=== PATIENT | female | born 1995 | race Caucasian/White ===

== ENCOUNTER 2016-11-04 21:39 | Emergency (ER) | payer OTHER ==
[~2016-11-04 21:39] MED LIST: AMOX500T PO; HYDR-971 PO
[2016-11-04 21:43] VITALS: BP 128/85
[2016-11-04] MEDS ORDERED: PENI500T PO (22:53)
[2016-11-04] MEDS ORDERED: TRAM-29 PO (22:53)
--- NOTE | 2016-11-04 22:54 | PHYS DOC ---
Past Medical History Past Medical History: No Pertinent History Past Surgical History: Additional Past Surgical Histo: D & C Additional Information: Nonsmoker Alcohol Use: None Drug Use: None Adult General Chief Complaint Chief Complaint: DENTAL PROBLEM HPI HPI Patient is a 21 year old female who presents with right mandibular dental pain starting today. The affected tooth was previously broken. She denies any new injury. She denies any fevers. She does not have a PCP. She does not have a dentist. Review of Systems Review of Systems Constitutional: Denies fever or chills. [] Eyes: Denies change in visual acuity, redness, or eye pain. [] HENT: Denies ear pain, nasal congestion or sore throat. Reports dental pain and swelling. Integument: Denies rash or skin lesions. [] Neurologic: Denies headache, focal weakness or sensory changes. [] Allergies Allergies Allergies Coded Allergies Type Severity Reaction Last Updated Verified No Known Drug Allergies 01/23/16 No Physical Exam Physical Exam Constitutional: Well developed, well nourished, no acute distress, non-toxic appearance. [] HENT: Normocephalic, atraumatic, bilateral external ears normal, oropharynx moist, no oral exudates, nose normal. Bilateral TMs without erythema or bulging. There is no posterior pharyngeal erythema or tonsillar edema. Tooth # 30 is broken with mild surrounding gingival edema without dental abscess. Eyes: PERRLA, EOMI, conjunctiva normal, no discharge. [] Neck: Normal range of motion, no tenderness, supple, no stridor. [] Skin: Warm, dry, no erythema, no rash. [] Neurologic: Alert and oriented X 3, normal motor function, normal sensory function, no focal deficits noted. [] Psychologic: Affect normal, judgement normal, mood normal. [] Current Patient Data Vital Signs Vital Signs Date Time Temp Pulse Resp B/P Pulse Ox O2 Delivery O2 Flow Rate FiO2 11/04/16 21:43 97.9 79 18 98 Room Air 97.9 Lab Values Laboratory Tests Test 11/04/16 21:35 POC Urine HCG, Qualitative Hcg negative (Negative) EKG EKG [] Radiology/Procedures Radiology/Procedures [] Course & Med Decision Making Course & Med Decision Making Pertinent Labs and Imaging studies reviewed. (See chart for details) [] Dragon Disclaimer Dragon Disclaimer This electronic medical record was generated, in whole or in part, using a voice recognition dictation system. Departure Departure Impression: Primary Impression: Dentalgia Disposition: 01 HOME, SELF-CARE Condition: STABLE Referrals: NO PCP (PCP) Patient Instructions: Dental Pain, [id number] Additional Instructions: Please complete all the prescribed antibiotics, even if your tooth is feeling better. Please take the prescribed pain medication as directed. Do not drive or heavy machinery while taking pain medication. Please follow-up with the dentist of your choice as soon as possible. Return to the emergency department if you have any new or concerning symptoms. Scripts Penicillin V Potassium 500 Mg Tablet1 Tab PO TID #30 TAB Prov:CALIXTO DE LA FUENTE 11/04/16 Tramadol Hcl (Ultram)50 Mg Jerugu18 Mg PO Q6H PRN PAIN #20 TAB Prov:CALIXTO DE LA FUENTE 11/04/16 CALIXTO DE LA FUENTE Nov 04, 2016 22:53
== END 2016-11-04 22:55 | disposition home or self-care (01) ==
LOC: ER 21:39
DX: K08.89 Other specified disorders of teeth and supporting structures (principal)
CPT/HCPCS: 81025; 99283

== ENCOUNTER 2017-07-12 15:00 | Emergency (ER) | payer SELFPAY ==
[~2017-07-12] VITALS: Ht 165.1 cm; Wt 59.0 kg
[~2017-07-12 15:00] MED LIST changes: +PENI500T PO; +TRAM-48 PO
--- NOTE | 2017-07-12 15:49 | PHYS DOC ---
Past Medical History Past Medical History: Other Additional Past Medical Histor: ECTOPIC Past Surgical History: Additional Past Surgical Histo: D & C Alcohol Use: None Drug Use: None Adult General Chief Complaint Chief Complaint: ABDOMINAL PAIN HPI HPI Patient is a 22 year old female presents the ED complaining of vaginal bleeding since last night. Patient states she had one episode of vaginal bleeding and lower abdominal cramping. Rates the pain as 8/10. Patient states she thinks she might have been . Patient states similar symptoms with previous miscarriages in the past. Patient has had one stillbirth and 3 miscarriages. One living child. . Denies chest pain, shortness of breath , nausea/vomiting, blood in stool, inability to eat, fever, headache, vision changes. Review of Systems Review of Systems Constitutional: Denies fever or chills [] Eyes: Denies change in visual acuity, redness, or eye pain [] HENT: Denies nasal congestion or sore throat [] Respiratory: Denies cough or shortness of breath [] Cardiovascular: No additional information not addressed in HPI [] GI: Complains of abdominal pain. Denies nausea, vomiting, bloody stools or diarrhea [] : Denies dysuria or hematuria [] Musculoskeletal: Denies back pain or joint pain [] Integument: Denies rash or skin lesions [] Neurologic: Denies headache, focal weakness or sensory changes [] Endocrine: Denies polyuria or polydipsia [] All other systems were reviewed and found to be within normal limits, except as documented in this note. Current Medications Current Medications Current Medications Medications (Trade) Dose Ordered Sig/[facility] Start Time Stop Time Status Last Admin Dose Admin Ketorolac Tromethamine (Toradol) 30 mg 1X ONCE 07/12/17 16:45 07/12/17 16:46 DC 07/12/17 16:45 30 MG Ondansetron HCl (Zofran) 4 mg 1X ONCE 07/12/17 16:45 07/12/17 16:46 DC 07/12/17 16:45 4 MG Potassium Chloride (Klor-Con) 40 meq 1X ONCE 07/12/17 17:30 07/12/17 17:31 DC 07/12/17 17:30 40 MEQ Allergies Allergies Allergies Coded Allergies Type Severity Reaction Last Updated Verified No Known Drug Allergies 01/23/16 No Physical Exam Physical Exam Constitutional: Well developed, well nourished, no acute distress, non-toxic appearance. [] HENT: Normocephalic, atraumatic, bilateral external ears normal, oropharynx moist, no oral exudates, nose normal. [] Eyes: PERRLA, EOMI, conjunctiva normal, no discharge. [] Neck: Normal range of motion, no tenderness, supple, no stridor. [] Cardiovascular:Heart rate regular rhythm, no murmur [] Lungs & Thorax: Bilateral breath sounds clear to auscultation [] Abdomen: Bowel sounds normal, soft, MILD LLQ ABDOMINAL TENDERNESS, no masses, no pulsatile masses. [] Refused /pelvic exam. Skin: Warm, dry, no erythema, no rash. [] Back: No tenderness, no CVA tenderness. [] Extremities: No tenderness, no cyanosis, no clubbing, ROM intact, no edema. [] Neurologic: Alert and oriented X 3, normal motor function, normal sensory function, no focal deficits noted. [] Psychologic: Affect normal, judgement normal, mood normal. [] Current Patient Data Vital Signs Vital Signs Date Time Temp Pulse Resp B/P (MAP) Pulse Ox O2 Delivery O2 Flow Rate FiO2 07/12/17 16:42 72 20 122/81 (95) 98 Room Air 07/12/17 15:40 98.3 98.3 Lab Values Laboratory Tests Test 07/12/17 15:30 07/12/17 15:38 07/12/17 15:50 Urine Color Yellow Urine Clarity Clear Urine pH 6.0 Urine Specific [place] >=1.030 Urine Protein Negative mg/dL (NEG-TRACE) Urine Glucose (UA) Negative mg/dL (NEG) Urine Ketones (Stick) Negative mg/dL (NEG) Urine Blood Negative (NEG) Urine Nitrite Negative (NEG) Urine Bilirubin Small (NEG) Urine Urobilinogen Dipstick 1.0 mg/dL (0.2 mg/dL) Urine Leukocyte Esterase Negative (NEG) Urine RBC 0 /HPF (0-2) Urine WBC 1-4 /HPF (0-4) Urine Squamous Epithelial Cells Occ /LPF Urine Amorphous Sediment Present /HPF Urine Bacteria Few /HPF (0-FEW) Urine Mucus Mod /LPF POC Urine HCG, Qualitative Hcg negative (Negative) White Blood Count 4.6 x10^3/uL (4.0-11.0) Red Blood Count 4.29 x10^6/uL (3.50-5.40) Hemoglobin 13.0 g/dL (12.0-15.5) Hematocrit 39.3 % (36.0-47.0) Mean Corpuscular Volume 92 fL (79-100) Mean Corpuscular Hemoglobin 30 pg (25-35) Mean Corpuscular Hemoglobin Concent 33 g/dL (31-37) Red Cell Distribution Width 16.7 % (11.5-14.5) H Platelet Count 224 x10^3/uL (140-400) Neutrophils (%) (Auto) 42 % (31-73) Lymphocytes (%) (Auto) 47 % (24-48) Monocytes (%) (Auto) 8 % (0-9) Eosinophils (%) (Auto) 2 % (0-3) Basophils (%) (Auto) 1 % (0-3) Neutrophils # (Auto) 1.9 x10^3uL (1.8-7.7) Lymphocytes # (Auto) 2.2 x10^3/uL (1.0-4.8) Monocytes # (Auto) 0.4 x10^3/uL (0.0-1.1) Eosinophils # (Auto) 0.1 x10^3/uL (0.0-0.7) Basophils # (Auto) 0.1 x10^3/uL (0.0-0.2) Sodium Level 140 mmol/L (136-145) Potassium Level 3.1 mmol/L (3.5-5.1) L Chloride Level 106 mmol/L (98-107) Carbon Dioxide Level 25 mmol/L (21-32) Anion Gap 9 (6-14) Blood Urea Nitrogen 8 mg/dL (7-20) Creatinine 0.8 mg/dL (0.6-1.0) Estimated GFR (Cockcroft-Gault) 88.1 BUN/Creatinine Ratio 10 (6-20) Glucose Level 86 mg/dL (70-99) Calcium Level 8.8 mg/dL (8.5-10.1) Total Bilirubin 0.4 mg/dL (0.2-1.0) Aspartate Amino Transferase (AST) 16 U/L (15-37) Alanine Aminotransferase (ALT) 21 U/L (14-59) Alkaline Phosphatase 48 U/L (46-116) Total Protein 7.0 g/dL (6.4-8.2) Albumin 3.9 g/dL (3.4-5.0) Albumin/Globulin Ratio 1.3 (1.0-1.7) Serum Test, Qualitative Negative (NEG) Laboratory Tests 07/12/17 15:50 Laboratory Tests 07/12/17 15:50 EKG EKG [] Radiology/Procedures Radiology/Procedures PROCEDURE: PELVIS W/TV Pelvic ultrasound, 07/12/2017: History: Pelvic pain, vaginal bleeding Transabdominal and transvaginal scans were obtained. The uterus measures 7.6 x 3.8 x 5.2 cm. There is thickening of the central uterine echo complex which measures 14 mm in AP dimension. The uterus is otherwise unremarkable. The left ovary is of normal size with normal blood flow. The right ovary is enlarged. It contains a 4.1 x 3.3 x 4.0 cm mass. This mass is complex demonstrating irregular cystic components as well as echogenic components. There is suggestion of minimal internal color flow. The adnexal regions are otherwise unremarkable. No free fluid is seen in the pelvis. IMPRESSION: 1. Mild nonspecific thickening of the central uterine echo complex likely due to endometrial hyperplasia. An endometrial polyp or submucosal fibroid or less likely possibilities. 2. Complex right ovarian mass with diagnostic considerations including a hemorrhagic cyst, endometrioma or an ovarian neoplasm. Sonographic follow-up is suggested. [] Course & Med Decision Making Course & Med Decision Making Pertinent Labs and Imaging studies reviewed. (See chart for details) [] Discussed case with Dr. Rios, MANAGER [employer]. States patient can follow-up in office tomorrow. Will further evaluate her at that time. Discussed labs and imaging with patient. Patient's pain resolved. On reexamination, abdomen is soft nontender nondistended. No peritoneal signs. Discussed follow-up with MANAGER [employer] tomorrow. Provided contact information and education for follow-up. Discussed reasons to return to the ED. Patient understands and agrees with plan. Dragon Disclaimer Dragon Disclaimer This electronic medical record was generated, in whole or in part, using a voice recognition dictation system. Departure Departure Impression: Primary Impression: Ovarian mass, right Disposition: 01 HOME, SELF-CARE Condition: IMPROVED Referrals: NO PCP (PCP) DAVID MUNOZ MD Patient Instructions: Ovarian Cyst Scripts Tramadol Hcl (TRAMADOL HCL) 50 Mg Tablet 1 TAB PO PRN Q6HRS, #15 TAB Prov: MAGGI LIZARRAGA 07/12/17 MAGGI LIZARRAGA Jul 12, 2017 15:49
[2017-07-12 15:58] LABS: BILIRUBIN,URINE SMALL (NEG); GLUCOSE,URINE NEGATIVE (NEG); NITRITE,URINE NEGATIVE (NEG); PROTEIN,URINE NEGATIVE (NEG-TRACE)
[2017-07-12 16:01] LABS: BASO # 0.1 x10^3/uL (0.0-0.2); BASO % 1 % (0-3); EOS % 2 % (0-3); HEMATOCRIT 39.3 % (36.0-47.0); LYMPH # 2.2 x10^3/uL (1.0-4.8); LYMPH % 47 % (24-48); MEAN CORPUSCULAR HEMOGLOBIN 30 pg (25-35); MEAN CORPUSCULAR HGB CONC 33 g/dL (31-37); MEAN CORPUSCULAR VOLUME 92 fL (79-100); MONO % 8 % (0-9); NEUT % 42 % (31-73); PLATELET COUNT 224 x10^3/uL (140-400); RED BLOOD COUNT 4.29 x10^6/uL (3.50-5.40); RED CELL DISTRIBUTION WIDTH 16.7 % (11.5-14.5); WHITE BLOOD COUNT 4.6 x10^3/uL (4.0-11.0)
[2017-07-12 16:05] LABS: BACTERIA,URINE FEW /HPF (0-FEW); RBC,URINE 0 /HPF (0-2); SQUAMOUS EPITHELIAL CELL,UR OCC /LPF
[2017-07-12 16:10] LABS: NEG OBC SER NEG; POS OBC SER POS
[2017-07-12 16:38] LABS: ALBUMIN 3.9 g/dL (3.4-5.0); ALBUMIN/GLOBULIN RATIO 1.3 (1.0-1.7)
[2017-07-12 16:39] LABS: CALCIUM 8.8 mg/dL (8.5-10.1); CREATININE 0.8 mg/dL (0.6-1.0); GFR 88.1; POTASSIUM 3.1 mmol/L (3.5-5.1); TOTAL BILIRUBIN 0.4 mg/dL (0.2-1.0)
[2017-07-12 16:42] VITALS: BP 122/81
[2017-07-12] MEDS ORDERED: KETOROLAC 30 MG/ML INJ. IV ONE (16:45)
[2017-07-12] MEDS ORDERED: ONDANSETRON PF 4 MG/2 ML VIAL. IV ONE (16:45)
--- NOTE | 2017-07-12 16:46 | RAD ---
Pelvic ultrasound, 07/12/2017: History: Pelvic pain, vaginal bleeding Transabdominal and transvaginal scans were obtained. The uterus measures 7.6 x 3.8 x 5.2 cm. There is thickening of the central uterine echo complex which measures 14 mm in AP dimension. The uterus is otherwise unremarkable. The left ovary is of normal size with normal blood flow. The right ovary is enlarged. It contains a 4.1 x 3.3 x 4.0 cm mass. This mass is complex demonstrating irregular cystic components as well as echogenic components. There is suggestion of minimal internal color flow. The adnexal regions are otherwise unremarkable. No free fluid is seen in the pelvis. IMPRESSION: 1. Mild nonspecific thickening of the central uterine echo complex likely due to endometrial hyperplasia. An endometrial polyp or submucosal fibroid or less likely possibilities. 2. Complex right ovarian mass with diagnostic considerations including a hemorrhagic cyst, endometrioma or an ovarian neoplasm. Sonographic follow-up is suggested.
[2017-07-12] MEDS ORDERED: TRAM50TA PO (17:24)
[2017-07-12] MEDS ORDERED: POTASSIUM CHLORIDE 20 MEQ TABLET.ER. PO ONE (17:30)
== END 2017-07-12 17:40 | disposition home or self-care (01) ==
LOC: ER 15:00
DX: N83.8 Other noninflammatory disorders of ovary, fallopian tube and broad ligament (principal); R10.32 Left lower quadrant pain
CPT/HCPCS: 36415; 76830; 76856; 80053; 81001; 81025; 84703; 85025; 86900; 86901; 96374; 96375; 99285; J1885; J2405

== ENCOUNTER 2017-09-17 15:50 | Emergency (ER) | payer SELFPAY ==
[2017-09-17 17:13] LABS: BILIRUBIN,URINE NEGATIVE (NEG); CLARITY,URINE CLOUDY; COLOR,URINE YELLOW; GLUCOSE,URINE NEGATIVE (NEG); NITRITE,URINE POSITIVE (NEG); PROTEIN,URINE 30 mg/dL (NEG-TRACE)
[2017-09-17 17:13] LABS: URINE HCG POC HCG NEGATIVE (Negative)
[2017-09-17 17:24] LABS: BACTERIA,URINE FEW /HPF (0-FEW); SQUAMOUS EPITHELIAL CELL,UR OCC /LPF; WBC,URINE TNTC /HPF (0-4)
[2017-09-17] MEDS: ACETAMINOPHEN 325 MG TABLET. PO ×2 (18:43)
[2017-09-17] MEDS: IBUPROFEN 800 MG TABLET. PO ×2 (18:44)
[2017-09-17] MEDS: CIPROFLOXACIN HCL 250 MG TABLET. PO ×2 (18:45)
[2017-09-17] MEDS: HYDROcodone/APAP 5/325MG 1 TAB TABLET PO ×2 (18:46)
[2017-09-17] MEDS: cefTRIAXone IM 1 GM VIAL IM ×2 (18:48)
== END 2017-09-17 19:27 | disposition home or self-care (01) ==
LOC: ER 15:50
DX: N12 Tubulo-interstitial nephritis, not specified as acute or chronic (principal); Z87.440 Personal history of urinary (tract) infections
CPT/HCPCS: 81001; 81025; 87086; 87186; 96372; 99284; J0696

== ENCOUNTER 2019-06-02 14:18 | Emergency (ER) | payer SELFPAY ==
[~2019-06-02] VITALS: Ht 166.4 cm; Wt 60.3 kg
[~2019-06-02 14:18] MED LIST changes: +CIPR500T94 PO; +HYDR-3164 PO; -HYDR-971 PO; +ONDA4TAB10 PO; +TRAM50TA PO
--- NOTE | 2019-06-02 14:40 | PHYS DOC ---
Past Medical History Past Medical History: UTI, Other Additional Past Medical Histor: ECTOPIC Past Surgical History: Additional Past Surgical Histo: D & C Alcohol Use: None Drug Use: None Adult General Chief Complaint Chief Complaint: ANXIETY/PANIC ATTACK HPI HPI Patient is a 24 year old female who presents to the ER for headache and loss of eye vision in the left eye that started 45 minutes prior to arrival. She is also light-sensitive. The patient states when this happens she was helping her sister get into the house. The patient rates the pain behind her eyes 8 out of 10 in severity and sharp. Review of Systems Review of Systems Constitutional: Denies fever or chills [] Eyes: Reports change in visual acuity, and eye pain [] HENT: Denies nasal congestion or sore throat [] Respiratory: Denies cough or shortness of breath [] Cardiovascular: No additional information not addressed in HPI [] GI: Denies abdominal pain, nausea, vomiting, bloody stools or diarrhea [] : Denies dysuria or hematuria [] Musculoskeletal: Denies back pain or joint pain [] Integument: Denies rash or skin lesions [] Neurologic: Reports headache, Denies focal weakness or sensory changes [] Endocrine: Denies polyuria or polydipsia [] Complete systems were reviewed and found to be within normal limits, except as documented in this note. Current Medications Current Medications Current Medications Medications (Trade) Dose Ordered Sig/[facility] Start Time Stop Time Status Last Admin Dose Admin Diphenhydramine HCl (Benadryl) 50 mg 1X ONCE 06/02/19 15:30 06/02/19 15:31 DC 06/02/19 15:37 50 MG Ketorolac Tromethamine (Toradol 15mg Vial) 10 mg 1X STAT 06/02/19 15:19 06/02/19 15:22 DC 06/02/19 15:37 10 MG Lidocaine HCl 20 ml 1X ONCE 06/02/19 14:45 06/02/19 14:46 DC 06/02/19 15:14 20 ML Prochlorperazine Edisylate (Compazine) 10 mg 1X ONCE 06/02/19 15:30 06/02/19 15:31 DC 06/02/19 15:38 10 MG Sodium Chloride 1,000 ml @ 1,000 mls/hr 1X ONCE 06/02/19 14:45 06/02/19 15:44 DC 06/02/19 14:45 1,000 MLS/HR Allergies Allergies Allergies Coded Allergies Type Severity Reaction Last Updated Verified No Known Drug Allergies 01/23/16 No Physical Exam Physical Exam Constitutional: Well developed, well nourished, no acute distress, non-toxic appearance. [] HENT: Normocephalic, atraumatic, bilateral external ears normal, oropharynx moist, no oral exudates, nose normal. [] Eyes: PERRLA, EOMI, conjunctiva normal, no discharge. [] Neck: Normal range of motion, no tenderness, supple, no stridor. [] Cardiovascular:Heart rate regular rhythm, no murmur [] Lungs & Thorax: Bilateral breath sounds clear to auscultation [] Abdomen: Bowel sounds normal, soft, no tenderness, no masses, no pulsatile masses. [] Skin: Warm, dry, no erythema, no rash. [] Back: No tenderness, no CVA tenderness. [] Extremities: No tenderness, no cyanosis, no clubbing, ROM intact, no edema. [] Neurologic: Alert and oriented X 3, normal motor function, normal sensory function, no focal deficits noted. [] Psychologic: Affect normal, judgement normal, mood normal. [] Current Patient Data Vital Signs Vital Signs Date Time Temp Pulse Resp B/P (MAP) Pulse Ox O2 Delivery O2 Flow Rate FiO2 06/02/19 14:30 98.3 75 18 114/72 (86) 98 Room Air 98.3 Lab Values Laboratory Tests Test 06/02/19 14:38 06/02/19 14:45 Glucose (Fingerstick) 116 mg/dL (70-99) H White Blood Count 5.8 x10^3/uL (4.0-11.0) Red Blood Count 4.69 x10^6/uL (3.50-5.40) Hemoglobin 14.2 g/dL (12.0-15.5) Hematocrit 42.6 % (36.0-47.0) Mean Corpuscular Volume 91 fL (79-100) Mean Corpuscular Hemoglobin 30 pg (25-35) Mean Corpuscular Hemoglobin Concent 33 g/dL (31-37) Red Cell Distribution Width 16.1 % (11.5-14.5) H Platelet Count 254 x10^3/uL (140-400) Neutrophils (%) (Auto) 46 % (31-73) Lymphocytes (%) (Auto) 43 % (24-48) Monocytes (%) (Auto) 7 % (0-9) Eosinophils (%) (Auto) 2 % (0-3) Basophils (%) (Auto) 1 % (0-3) Neutrophils # (Auto) 2.7 x10^3/uL (1.8-7.7) Lymphocytes # (Auto) 2.5 x10^3/uL (1.0-4.8) Monocytes # (Auto) 0.4 x10^3/uL (0.0-1.1) Eosinophils # (Auto) 0.1 x10^3/uL (0.0-0.7) Basophils # (Auto) 0.1 x10^3/uL (0.0-0.2) Prothrombin Time 14.3 SEC (11.7-14.0) H Prothrombin Time INR 1.1 (0.8-1.1) Activated Partial Thromboplast Time 28 SEC (24-38) Sodium Level 142 mmol/L (136-145) Potassium Level 3.6 mmol/L (3.5-5.1) Chloride Level 106 mmol/L (98-107) Carbon Dioxide Level 26 mmol/L (21-32) Anion Gap 10 (6-14) Blood Urea Nitrogen 11 mg/dL (7-20) Creatinine 0.8 mg/dL (0.6-1.0) Estimated GFR (Cockcroft-Gault) 86.7 BUN/Creatinine Ratio 14 (6-20) Glucose Level 108 mg/dL (70-99) H Calcium Level 9.4 mg/dL (8.5-10.1) Total Bilirubin 0.4 mg/dL (0.2-1.0) Aspartate Amino Transferase (AST) 17 U/L (15-37) Alanine Aminotransferase (ALT) 23 U/L (14-59) Alkaline Phosphatase 47 U/L (46-116) Total Protein 6.3 g/dL (6.4-8.2) L Albumin 3.6 g/dL (3.4-5.0) Albumin/Globulin Ratio 1.3 (1.0-1.7) Serum Test, Qualitative Negative (NEG) Laboratory Tests 06/02/19 14:45 Laboratory Tests 06/02/19 14:45 EKG EKG EKG interpreted by Dr. Delmy Cohen with rate of 64, No STEMI.[] Radiology/Procedures Radiology/Procedures [][facility] [address] [place] [address] IMAGING REPORT Signed PATIENT: QAMAR MILLER ACCOUNT: [id number] : 1995 LOCATION: ER AGE: 24 SEX: F EXAM STATUS: REG ER ORD. PHYSICIAN: MASTER REYNOSO APRN REASON: headache, loss of vision L eye. PROCEDURE: CT CODE STROKE HEAD WO Examination: CT CODE STROKE HEAD WO History: Loss of left eye vision, headache Comparison/Correlation: None Findings: Axial images of the head were obtained without contrast. Ventricles are normal size. No intracranial hemorrhage, midline shift, or mass effect. Bony structures unremarkable. Minimal opacification of right ethmoid air cells is noted and this may represent a polyp. Visualized globes and optic nerves are unremarkable. Minimal chronic paranasal sinusitis. Impression: No intracranial hemorrhage. No evidence of evolving infarct. Consider further evaluation with MRI if able and if concern for infarct persists. On 05/27/2019 at 2:49 PM, the nurse assigned to the patient Dyana was informed. Results were reported to [facility] Compliance Statement: One or more of the following individualized dose reduction techniques were utilized for this examination: 1. Automated exposure control 2. Adjustment of the mA and/or kV according to patient size 3. Use of iterative reconstruction technique Electronically signed by: Gerard Almonte MD (06/02/2019 2:51 PM) [facility] DICTATED and SIGNED BY: GERARD ALMONTE MD DATE: 06/02/19 7121 Course & Med Decision Making Course & Med Decision Making Pertinent Labs and Imaging studies reviewed. (See chart for details) Patient is having loss of vision in the L eye with sudden onset of headache that started at 1345. Activated Code Stroke. Ordered CT of head and labs. Patient informed nurse that she did have a hx of migraines but has not had one in a while. Used 2% lidocaine intranasally and pain behind eye went from 8 to 3. After headache cocktail patient pain is a 0 and she states her vision is back to normal. Will d/c home. Regina Disclaimer Regina Disclaimer This electronic medical record was generated, in whole or in part, using a voice recognition dictation system. Departure Departure Impression: Primary Impression: Migraine Disposition: HOME, SELF-CARE Condition: STABLE Referrals: NO PCP (PCP) Patient Instructions: Migraine Headache Additional Instructions: Thank you for visiting [facility]. We appreciate you trusting us with your care. If any additional problems come up don't hesitate to return to visit us. Please follow up with your primary care provider so they can plan additional care if needed and know about the problem that you had. If symptoms worsen come back to the Emergency Department. Any concerning symptoms that start such as chest pain, shortness of air, weakness or numbness on one side of the body, running high fevers or any other concerning symptoms return to the ER. Please follow up with primary care provider and neurology to be put back on migraine medication. NIHSS Stroke Scale NIH Stroke Scale: NIH Stroke Scale Response (Comments) Value Level of Consciousness: 0 Alert/Responsive 0 LOC Questions: 0 Answers both correctly 0 LOC Commands: 0 Performs both tasks 0 Best Gaze: 0 Normal 0 Visual: 1 Partial hemianopia 1 Facial Palsy: 0 Normal, symmetrical 0 Motor - Left Arm 0 No drift 0 Motor - Right Arm 0 No drift 0 Motor - Left Leg 0 No drift 0 Motor: Right Leg 0 No drift 0 Limb Ataxia: 0 Absent 0 Sensory: 0 No loss 0 Best Language: 0 Normal 0 Dysathria: 0 Normal 0 Extinction and Inattention: 0 Normal (on arrival to ED) 0 Total 1 Problem Qualifiers Primary Impression: Migraine Migraine type: unspecified Status migrainosus presence: without status migrainosus Intractability: not intractable Qualified Codes: G43.909 - Migraine, unspecified, not intractable, without status migrainosus MASTER REYNOSO APRN Jun 02, 2019 14:40
[2019-06-02] MEDS ORDERED: IV NORMAL SALINE 1000ML BAG 1,000 ML IV ONE (14:45)
[2019-06-02] MEDS ORDERED: LIDOCAINE 2% 20 ML VIAL. IJ ONE (14:45)
[2019-06-02 14:53] LABS: BASO # 0.1 x10^3/uL (0.0-0.2); BASO % 1 % (0-3); EOS # 0.1 x10^3/uL (0.0-0.7); EOS % 2 % (0-3); HEMATOCRIT 42.6 % (36.0-47.0); HEMOGLOBIN 14.2 g/dL (12.0-15.5); LYMPH # 2.5 x10^3/uL (1.0-4.8); LYMPH % 43 % (24-48); MEAN CORPUSCULAR HEMOGLOBIN 30 pg (25-35); MEAN CORPUSCULAR HGB CONC 33 g/dL (31-37); MEAN CORPUSCULAR VOLUME 91 fL (79-100); MONO # 0.4 x10^3/uL (0.0-1.1); MONO % 7 % (0-9); NEUT # 2.7 x10^3/uL (1.8-7.7); NEUT % 46 % (31-73); PLATELET COUNT 254 x10^3/uL (140-400); RED BLOOD COUNT 4.69 x10^6/uL (3.50-5.40); RED CELL DISTRIBUTION WIDTH 16.1 % (11.5-14.5); WHITE BLOOD COUNT 5.8 x10^3/uL (4.0-11.0)
--- NOTE | 2019-06-02 14:55 | RAD ---
Examination: CT CODE STROKE HEAD WO History: Loss of left eye vision, headache Comparison/Correlation: None Findings: Axial images of the head were obtained without contrast. Ventricles are normal size. No intracranial hemorrhage, midline shift, or mass effect. Bony structures unremarkable. Minimal opacification of right ethmoid air cells is noted and this may represent a polyp. Visualized globes and optic nerves are unremarkable. Minimal chronic paranasal sinusitis. Impression: No intracranial hemorrhage. No evidence of evolving infarct. Consider further evaluation with MRI if able and if concern for infarct persists. On 05/27/2019 at 2:49 PM, the nurse assigned to the patient Dyana was informed. Results were reported to [facility] Compliance Statement: One or more of the following individualized dose reduction techniques were utilized for this examination: 1. Automated exposure control 2. Adjustment of the mA and/or kV according to patient size 3. Use of iterative reconstruction technique Electronically signed by: Gerard Mora MD (06/02/2019 2:51 PM) [facility]
[2019-06-02 15:02] LABS: PROTHROMBIN TIME PATIENT 14.3 SEC (11.7-14.0)
[2019-06-02] MEDS ORDERED: KETOROLAC 15 MG/ML VIAL. IV STA (15:19)
[2019-06-02] MEDS ORDERED: diphenhydrAMINE 50 MG/ML VIAL IVP ONE (15:30)
[2019-06-02] MEDS ORDERED: PROCHLORPERAZINE 10 MG/2 ML VIAL. IV ONE (15:30)
--- NOTE | 2019-06-02 15:35 | EKG ---
[facility] [address] [place] [address] Test Date: 2019-06-02 Test Time: 14:55:15 Pat Name: QAMAR MILLER Department: Room: Gender: F [employer]: : 1995 Requested By: MASTER REYNOSO Order Number: [id number] Reading MD: Measurements Intervals [place] Rate: 63 P: 60 MO: 144 QRS: 83 QRSD: 90 T: 60 QT: 384 QTc: 395 Interpretive Statements SINUS RHYTHM NON SPECIFIC ST-T ABNORMALITY (ELEVATION) OTHERWISE NORMAL ECG No previous ECG available for comparison
[2019-06-02 15:46] LABS: PREG TEST PT QUAL NEGATIVE (NEG)
[2019-06-02 15:49] LABS: ALBUMIN 3.6 g/dL (3.4-5.0); ALBUMIN/GLOBULIN RATIO 1.3 (1.0-1.7); CALCIUM 9.4 mg/dL (8.5-10.1); CREATININE 0.8 mg/dL (0.6-1.0); GFR 86.7; POTASSIUM 3.6 mmol/L (3.5-5.1); TOTAL BILIRUBIN 0.4 mg/dL (0.2-1.0); TOTAL PROTEIN 6.3 g/dL (6.4-8.2)
[2019-06-02 16:09] VITALS: BP 123/73
== END 2019-06-02 16:18 | disposition home or self-care (01) ==
LOC: ER 14:18
DX: G43.909 Migraine, unspecified, not intractable, without status migrainosus (principal); H54.62 Unqualified visual loss, left eye, normal vision right eye; Z98.890 Other specified postprocedural states
CPT/HCPCS: 36415; 70450; 80053; 82962; 84703; 85025; 85610; 85651; 85730; 93005; 96374; 96375; 99285; J0780; J1200; J1885; J2001; J7030

== ENCOUNTER 2019-07-20 17:54 | Emergency (ER) | payer SELFPAY ==
[~2019-07-20] VITALS: Ht 165.1 cm; Wt 63.5 kg
[2019-07-20] MEDS ORDERED: KETOROLAC 30 MG/ML VIAL. IVP ONE (19:00)
[2019-07-20 19:12] LABS: BILIRUBIN,URINE SMALL (NEG); CLARITY,URINE CLOUDY; COLOR,URINE RED; NITRITE,URINE NEGATIVE (NEG); PH,URINE 5.5; PROTEIN,URINE 100 mg/dL (NEG-TRACE); UROBILINOGEN,URINE 0.2 mg/dL (0.2 mg/dL)
[2019-07-20 19:23] LABS: BACTERIA,URINE 0 /HPF (0-FEW); RBC,URINE TNTC /HPF (0-2)
[2019-07-20 19:24] LABS: SQUAMOUS EPITHELIAL CELL,UR OCC /LPF
--- NOTE | 2019-07-20 19:42 | PHYS DOC ---
Past Medical History Past Medical History: Migraines Additional Past Medical Histor: ECTOPIC (MAGALI RAMOS APRN) Past Surgical History: Additional Past Surgical Histo: D & C (MAGALI RAMOS APRN) Alcohol Use: None Drug Use: None (MAGALI RAMOS APRN) Attending Signature I have participated in the care of this patient and I have reviewed and agree with all pertinent clinical information above including history, exam, and recommendations. (ANNIE SNIDER MD) Adult General Chief Complaint Chief Complaint: MECHANICAL FALL HPI HPI Patient is a 24 year old female who presents with states is standing in the bathtub taking a shower and she slipped and fell with her left side hitting the side of the bathtub. Patient complains of left sided rib and back pain. She states this happened at 1500 today. She denies hitting her head or LOC. She rates her pain a 7 out of 10. (MAGALI RAMOS APRN) Review of Systems Review of Systems Musculoskeletal: Left rib and left back pain or joint pain [] All other systems were reviewed and found to be within normal limits, except as documented in this note. (MAGALI RAMOS APRN) Current Medications Current Medications Current Medications Medications (Trade) Dose Ordered Sig/Ezra Start Time Stop Time Status Last Admin Dose Admin Info (CONTRAST GIVEN -- Rx MONITORING) 1 each PRN DAILY PRN 07/20/19 21:15 07/20/19 23:09 DC Iohexol (Omnipaque 300 Mg/ml) 75 ml 1X ONCE 07/20/19 21:15 07/20/19 21:16 DC 07/20/19 21:15 75 ML Ketorolac Tromethamine (Toradol 30mg Vial) 30 mg 1X ONCE 07/20/19 19:00 07/20/19 19:01 DC 07/20/19 19:15 30 MG (ANNIE SNIDER MD) Allergies Allergies Allergies Coded Allergies Type Severity Reaction Last Updated Verified No Known Drug Allergies 01/23/16 No (ANNIE SNIDER MD) Physical Exam Physical Exam Constitutional: Well developed, well nourished, no acute distress, non-toxic appearance. [] HENT: Normocephalic, atraumatic, bilateral external ears normal, oropharynx moist, no oral exudates, nose normal. [] Eyes: PERRLA, EOMI, conjunctiva normal, no discharge. [] Neck: Normal range of motion, no tenderness, supple, no stridor. [] Cardiovascular:Heart rate regular rhythm, no murmur [] Lungs & Thorax: Left rib tenderness. Bilateral breath sounds clear to auscultation [] Abdomen: Bowel sounds normal, soft, no tenderness, no masses, no pulsatile masses. [] Skin: Warm, dry, no erythema, no rash. [] Back: Left back tenderness, no CVA tenderness. [] Extremities: No tenderness, no cyanosis, no clubbing, ROM intact, no edema. [] Neurologic: Alert and oriented X 3, normal motor function, normal sensory function, no focal deficits noted. [] Psychologic: Affect normal, judgement normal, mood normal. [] (MAGALI RAMOS APRN) Current Patient Data Vital Signs Vital Signs Date Time Temp Pulse Resp B/P (MAP) Pulse Ox O2 Delivery O2 Flow Rate FiO2 07/20/19 22:37 76 98 07/20/19 18:02 97.6 14 113/56 (75) Room Air 97.6 (ANNIE SNIDER MD) Lab Values Laboratory Tests Test 07/20/19 18:10 07/20/19 18:12 07/20/19 19:15 Urine Color Red Urine Clarity Cloudy Urine pH 5.5 Urine Specific Jackson 1.020 Urine Protein 100 mg/dL (NEG-TRACE) Urine Glucose (UA) Negative mg/dL (NEG) Urine Ketones (Stick) 15 mg/dL (NEG) Urine Blood Large (NEG) Urine Nitrite Negative (NEG) Urine Bilirubin Small (NEG) Urine Urobilinogen Dipstick 0.2 mg/dL (0.2 mg/dL) Urine Leukocyte Esterase Small (NEG) Urine RBC Tntc /HPF (0-2) Urine WBC 5-10 /HPF (0-4) Urine Squamous Epithelial Cells Occ /LPF Urine Bacteria 0 /HPF (0-FEW) Urine Opiates Screen Neg (NEG) Urine Methadone Screen Neg (NEG) Urine Barbiturates Neg (NEG) Urine Phencyclidine Screen Neg (NEG) Urine Amphetamine/Methamphetamine Neg (NEG) Urine Benzodiazepines Screen Neg (NEG) Urine Cocaine Screen Neg (NEG) Urine Cannabinoids Screen Neg (NEG) Urine Ethyl Alcohol Neg (NEG) POC Urine HCG, Qualitative Hcg negative (Negative) White Blood Count 10.7 x10^3/uL (4.0-11.0) Red Blood Count 3.88 x10^6/uL (3.50-5.40) Hemoglobin 12.0 g/dL (12.0-15.5) Hematocrit 35.9 % (36.0-47.0) L Mean Corpuscular Volume 92 fL (79-100) Mean Corpuscular Hemoglobin 31 pg (25-35) Mean Corpuscular Hemoglobin Concent 33 g/dL (31-37) Red Cell Distribution Width 14.8 % (11.5-14.5) H Platelet Count 251 x10^3/uL (140-400) Neutrophils (%) (Auto) 88 % (31-73) H Lymphocytes (%) (Auto) 6 % (24-48) L Monocytes (%) (Auto) 6 % (0-9) Eosinophils (%) (Auto) 0 % (0-3) Basophils (%) (Auto) 0 % (0-3) Neutrophils # (Auto) 9.4 x10^3/uL (1.8-7.7) H Lymphocytes # (Auto) 0.6 x10^3/uL (1.0-4.8) L Monocytes # (Auto) 0.6 x10^3/uL (0.0-1.1) Eosinophils # (Auto) 0.0 x10^3/uL (0.0-0.7) Basophils # (Auto) 0.0 x10^3/uL (0.0-0.2) Segmented Neutrophils % 93 % (35-66) H Lymphocytes % 4 % (24-48) L Monocytes % 3 % (0-10) Platelet Estimate Adequate (ADEQUATE) Anisocytosis Slight Ovalocytes Occ Sodium Level 139 mmol/L (136-145) Potassium Level 3.6 mmol/L (3.5-5.1) Chloride Level 104 mmol/L (98-107) Carbon Dioxide Level 26 mmol/L (21-32) Anion Gap 9 (6-14) Blood Urea Nitrogen 11 mg/dL (7-20) Creatinine 0.8 mg/dL (0.6-1.0) Estimated GFR (Cockcroft-Gault) 86.7 Glucose Level 94 mg/dL (70-99) Calcium Level 8.8 mg/dL (8.5-10.1) Laboratory Tests 07/20/19 19:15 Laboratory Tests 07/20/19 19:15 (ANNIE SNIDER MD) EKG EKG [] (MAGALI RAMOS APRN) Radiology/Procedures Radiology/Procedures [] (MAGALI RAMOS APRN) Impressions: [place] [address] IMAGING REPORT Signed PATIENT: QAMAR MILLER ACCOUNT: [id number] : 1995 LOCATION: ER AGE: 24 SEX: F EXAM STATUS: REG ER ORD. PHYSICIAN: MAGALI RAMOS APRN REASON: fall, pain PROCEDURE: RIBS LEFT AND PA CHEST RIBS LEFT AND PA CHEST History: Fall. Pain. Technique: PA view the chest and 3 additional views of the left ribs. Comparison: None. Findings: No consolidation or pleural effusion. No pneumothorax. No displaced rib fractures. Impression: 1. No acute cardiopulmonary process. No displaced rib fractures. Electronically signed by: Jose Torre DO (07/20/2019 8:08 PM) [facility] DICTATED and SIGNED BY: JOSE TORRE DO DATE: 07/20/192007 [address] [address] IMAGING REPORT Signed PATIENT: QAMAR MILLER ACCOUNT: [id number] : 1995 LOCATION: ER AGE: 24 SEX: F EXAM STATUS: REG ER ORD. PHYSICIAN: MAGALI RAMOS APRN REASON: fall, bloody urine PROCEDURE: CT ABD PELV W/ IV CONTRST ONLY Exam: CT abdomen and pelvis with contrast INDICATION: Fall, bloody urine TECHNIQUE: Sequential axial images through the abdomen and pelvis with contrast obtained without IV contrast. Sagittal and coronal reformatted images were reconstructed from the axial data and reviewed. Comparisons: None FINDINGS: Heart size is normal. No pericardial effusion. Visualized lung bases are clear. No pleural effusion. Liver, spleen, pancreas, gallbladder and adrenals are unremarkable. There is a laceration at the inferior pole of the left kidney measuring greater than 1 cm. Perinephric hematoma measuring up to 1.8 cm in thickness surrounding the kidney is also noted. Some of the hematoma appears to extend outside of the perirenal fat. Right kidney is atrophic with areas of cortical scarring. No renal or ureteral calculi. Bladder is partially distended and appears thin-walled. Uterus is not enlarged. No abnormal adnexal mass. Large and small bowel are unremarkable. No obstruction. No free intra-abdominal air or fluid. Abdominal aorta has a normal course and caliber. Abdominal vasculature is patent. No enlarged abdominal lymph nodes are identified. No suspicious osseous lesions or acute fractures. IMPRESSION: 1. At least grade 3 injury at the inferior pole of the left kidney with wedge-shaped area of nonenhancement which may represent laceration/infarcted renal tissue. There is a small perinephric hematoma measuring up to 1.8 cm in thickness with a small amount of that hematoma extending into the adjacent peritoneum. 2. Evaluation for arterial injury is limited without arterial phase and evaluation for collecting system injury is limited without delayed phase. Repeat imaging is advised. 3. No acute fractures seen. Exposure: One or more of the following in the visualized dose reduction techniques were utilized for this examination: 1. Automated exposure control 2. Adjustment of the MA and/or KV according to patient size 3. Use of iterative of reconstructive technique FOR INTERNAL CODING PURPOSES Critical result: Findings discussed with MAGALI RAMOS at 07/20/2019 9:56 PM. RESULT CODE: (C) Electronically signed by: Fabiano Lin MD (07/20/2019 10:08 PM) [facility] DICTATED and SIGNED BY: FABIANO LIN MD DATE: 07/20/192207 (RICHARD,MAGALI Iglesias APRN) Course & Med Decision Making Course & Med Decision Making Denies shortness of breath, chest pain, nausea, vomiting, headache, neck pain, spinal pain, abdominal pain, dizziness, visual changes, numbness or tingling. There is no spinal bony focal point tenderness with palpation. There is no bruising to her wrists bilaterally or to her back. There is no crepitus. There is no deformities. Moves all extremities and denies any extremity pain. According to motion of her neck. PERRLA. Speaks in full clear senses. Alert and oriented. Skin pink warm and dry. Abdomen soft and nontender with no bruising. Ambulatory with a steady gait. Tenderness over the left mid ribs that wrap around to the left back of the ribs. Lungs are clear to auscultation in all lobes. X-ray shows no acute findings. Upon speaking with patient I asked her if she was on her menses as there is bloo dy in her urine. She states no that was one of the reasons I came in also. Patient did not mention this to me upon initial examination. CT ABD PELV shows IMPRESSION: 1. At least grade 3 injury at the inferior pole of the left kidney with wedge-shaped area of nonenhancement which may represent laceration/infarcted renal tissue. There is a small perinephric hematoma measuring up to 1.8 cm in thickness with a small amount of that hematoma extending into the adjacent peritoneum. 2. Evaluation for arterial injury is limited without arterial phase and evaluation for collecting system injury is limited without delayed phase. Repeat imaging is advised. 3. No acute fractures seen. Patient is wanting to leave AMA to having small children at home and babysitters trying to leave. It is explained to her by me and Dr. Snider that by leaving she runs a huge risk of dying. The patient's CT findings are explained to her fully by me and Dr Snider. Patient states her understanding. I have spoken to transfer team and the accepting physician is the trauma surgeon Dr. Ibarra. Patient is a type II activation when she gets to . (MAGALI RAMOS APRN) Dragon Disclaimer Dragon Disclaimer This electronic medical record was generated, in whole or in part, using a voice recognition dictation system. (MAGALI RAMOS APRN) Departure Departure Impression: Primary Impression: Trauma to kidney Disposition: 05 TRANSFER OTHER ([facility]) Condition: STABLE Referrals: NO PCP (PCP) Problem Qualifiers Primary Impression: Trauma to kidney Encounter type: initial encounter Laterality: left Qualified Codes: S37.002A - Unspecified injury of left kidney, initial encounter MAGALI RAMOS APRN Jul 20, 2019 19:41 ANNIE SNIDER MD Jul 21, 2019 04:56
[2019-07-20 19:52] LABS: BARBITURATES NEG (NEG); BENZODIAZEPINES NEG (NEG); CANNABINOIDS NEG (NEG); COCAINE NEG (NEG); METHADONE NEG (NEG); OPIATES NEG (NEG); PHENCYCLIDINE NEG (NEG)
[2019-07-20 19:55] LABS: AMPHETAMINE/METHAMPHETAMINE NEG (NEG)
--- NOTE | 2019-07-20 20:11 | RAD ---
RIBS LEFT AND PA CHEST History: Fall. Pain. Technique: PA view the chest and 3 additional views of the left ribs. Comparison: None. Findings: No consolidation or pleural effusion. No pneumothorax. No displaced rib fractures. Impression: 1. No acute cardiopulmonary process. No displaced rib fractures. Electronically signed by: Jose Torre DO (07/20/2019 8:08 PM) [facility]
[2019-07-20] MEDS ORDERED: IBUP-1007 PO (20:22)
[2019-07-20] MEDS ORDERED: HYDR-3164 PO (20:22)
[2019-07-20] MEDS ORDERED: CEPH-264 PO (20:25)
[2019-07-20] MEDS ORDERED: IOHEXOL 300 MG/ML 100ML VIAL. IV ONE (21:15)
[2019-07-20] MEDS ORDERED: CONTRAST GIVEN. MC PRN (21:15)
[2019-07-20 21:22] LABS: BASO % 0 % (0-3); EOS % 0 % (0-3); HEMATOCRIT 35.9 % (36.0-47.0); LYMPH # 0.6 x10^3/uL (1.0-4.8); LYMPH % 6 % (24-48); MEAN CORPUSCULAR HEMOGLOBIN 31 pg (25-35); MEAN CORPUSCULAR HGB CONC 33 g/dL (31-37); MEAN CORPUSCULAR VOLUME 92 fL (79-100); MONO # 0.6 x10^3/uL (0.0-1.1); MONO % 6 % (0-9); NEUT # 9.4 x10^3/uL (1.8-7.7); NEUT % 88 % (31-73); PLATELET COUNT 251 x10^3/uL (140-400); RED BLOOD COUNT 3.88 x10^6/uL (3.50-5.40); RED CELL DISTRIBUTION WIDTH 14.8 % (11.5-14.5); WHITE BLOOD COUNT 10.7 x10^3/uL (4.0-11.0)
[2019-07-20 21:31] LABS: CALCIUM 8.8 mg/dL (8.5-10.1); CREATININE 0.8 mg/dL (0.6-1.0); GFR 86.7; POTASSIUM 3.6 mmol/L (3.5-5.1)
[2019-07-20 21:58] LABS: % LYMPHS 4 % (24-48); % MONOS 3 % (0-10); % SEGS 93 % (35-66)
[2019-07-20 22:03] LABS: OVALOCYTES OCC
[2019-07-20 22:05] LABS: ANISOCYTOSIS SLIGHT; PLT ESTIMATE ADEQUATE (ADEQUATE)
--- NOTE | 2019-07-20 22:10 | RAD ---
Exam: CT abdomen and pelvis with contrast INDICATION: Fall, bloody urine TECHNIQUE: Sequential axial images through the abdomen and pelvis with contrast obtained without IV contrast. Sagittal and coronal reformatted images were reconstructed from the axial data and reviewed. Comparisons: None FINDINGS: Heart size is normal. No pericardial effusion. Visualized lung bases are clear. No pleural effusion. Liver, spleen, pancreas, gallbladder and adrenals are unremarkable. There is a laceration at the inferior pole of the left kidney measuring greater than 1 cm. Perinephric hematoma measuring up to 1.8 cm in thickness surrounding the kidney is also noted. Some of the hematoma appears to extend outside of the perirenal fat. Right kidney is atrophic with areas of cortical scarring. No renal or ureteral calculi. Bladder is partially distended and appears thin-walled. Uterus is not enlarged. No abnormal adnexal mass. Large and small bowel are unremarkable. No obstruction. No free intra-abdominal air or fluid. Abdominal aorta has a normal course and caliber. Abdominal vasculature is patent. No enlarged abdominal lymph nodes are identified. No suspicious osseous lesions or acute fractures. IMPRESSION: 1. At least grade 3 injury at the inferior pole of the left kidney with wedge-shaped area of nonenhancement which may represent laceration/infarcted renal tissue. There is a small perinephric hematoma measuring up to 1.8 cm in thickness with a small amount of that hematoma extending into the adjacent peritoneum. 2. Evaluation for arterial injury is limited without arterial phase and evaluation for collecting system injury is limited without delayed phase. Repeat imaging is advised. 3. No acute fractures seen. Exposure: One or more of the following in the visualized dose reduction techniques were utilized for this examination: 1. Automated exposure control 2. Adjustment of the MA and/or KV according to patient size 3. Use of iterative of reconstructive technique FOR INTERNAL CODING PURPOSES Critical result: Findings discussed with MAGALI RAMOS at 07/20/2019 9:56 PM. RESULT CODE: (C) Electronically signed by: Fabiano Moore MD (07/20/2019 10:08 PM) [facility]
[2019-07-20 22:37] VITALS: BP 115/82
== END 2019-07-20 23:00 | disposition short-term general hospital (02) ==
LOC: ER 17:54
DX: S37.002A Unspecified injury of left kidney, initial encounter (principal); R07.81 Pleurodynia; G43.909 Migraine, unspecified, not intractable, without status migrainosus; W01.198A Fall on same level from slipping, tripping and stumbling with subsequent striking against other object, initial encounter; Y93.89 Activity, other specified; Y92.89 Other specified places as the place of occurrence of the external cause; Y99.8 Other external cause status
CPT/HCPCS: 36415; 71101; 74177; 80048; 80307; 81001; 81025; 85007; 85025; 87086; 96374; 99285; J1885; Q9967

== ENCOUNTER 2020-05-26 18:09 | Emergency (ER) | payer SELFPAY ==
[~2020-05-26] VITALS: Ht 165.1 cm; Wt 57.7 kg
[~2020-05-26 18:09] MED LIST changes: +CEPH-264 PO; +IBUP-1007 PO
[2020-05-26 19:05] VITALS: BP 126/77
[2020-05-26] MEDS ORDERED: IBUPROFEN 200 MG TABLET. PO ONE (19:30)
--- NOTE | 2020-05-26 19:43 | RAD ---
Exam: Left ankle 3 views INDICATION: Left ankle pain TECHNIQUE: Frontal, lateral and oblique views of the left ankle Comparisons: None FINDINGS: Bone mineralization is normal. No acute or healed fractures. Soft tissues are unremarkable. Joint spaces are well-maintained. IMPRESSION: No acute osseous abnormality. Electronically signed by: Fabiano Moore MD (05/26/2020 7:40 PM) [id number]
--- NOTE | 2020-05-26 19:51 | PHYS DOC ---
Past Medical History Past Medical History: Migraines Additional Past Medical Histor: ECTOPIC Past Surgical History: Additional Past Surgical Histo: D & C Smoking Status: Current Every Day Smoker Alcohol Use: None Drug Use: None General Adult EDM: Chief Complaint: ANKLE PROBLEM HPI: HPI: Patient is a 25 year old [f__sex] who presents with [] Review of Systems: Review of Systems: Constitutional: Denies fever or chills. [] Eyes: Denies change in visual acuity. [] HENT: Denies nasal congestion or sore throat. [] Respiratory: Denies cough or shortness of breath. [] Cardiovascular: Denies chest pain or edema. [] GI: Denies abdominal pain, nausea, vomiting, bloody stools or diarrhea. [] : Denies dysuria. [] Musculoskeletal: Denies back pain or joint pain. [] Integument: Denies rash. [] Neurologic: Denies headache, focal weakness or sensory changes. [] Endocrine: Denies polyuria or polydipsia. [] Lymphatic: Denies swollen glands. [] Psychiatric: Denies depression or anxiety. [] Heart Score: Risk Factors: Risk Factors: DM, Current or recent (<one month) smoker, HTN, HLP, family history of CAD, obesity. Risk Scores: Score 0 - 3: 2.5% MACE over next 6 weeks - Discharge Home Score 4 - 6: 20.3% MACE over next 6 weeks - Admit for Clinical Observation Score 7 - 10: 72.7% MACE over next 6 weeks - Early Invasive Strategies Current Medications: Current Medications Medications (Trade) Dose Ordered Sig/[facility] Start Time Stop Time Status Last Admin Dose Admin Ibuprofen (Motrin) 600 mg 1X ONCE 05/26/20 19:30 05/26/20 19:31 DC 05/26/20 19:28 600 MG Allergies: Allergies: Allergies Coded Allergies Type Severity Reaction Last Updated Verified No Known Drug Allergies 01/23/16 No Physical Exam: PE: Constitutional: Well developed, well nourished, no acute distress, non-toxic appearance. [] HENT: Normocephalic, atraumatic, bilateral external ears normal, oropharynx moist, no oral exudates, nose normal. [] Eyes: PERRLA, EOMI, conjunctiva normal, no discharge. [] Neck: Normal range of motion, no tenderness, supple, no stridor. [] Cardiovascular:Heart rate regular rhythm, no murmur [] Lungs & Thorax: Bilateral breath sounds clear to auscultation [] Abdomen: Bowel sounds normal, soft, no tenderness, no masses, no pulsatile masses. [] Skin: Warm, dry, no erythema, no rash. [] Back: No tenderness, no CVA tenderness. [] Extremities: No tenderness, no cyanosis, no clubbing, ROM intact, no edema. [] Neurologic: Alert and oriented X 3, normal motor function, normal sensory function, no focal deficits noted. [] Psychologic: Affect normal, judgement normal, mood normal. [] Current Patient Data: Vital Signs: Vital Signs Date Time Temp Pulse Resp B/P (MAP) Pulse Ox O2 Delivery O2 Flow Rate FiO2 05/26/20 19:05 98.0 85 20 126/77 (93) 98 Room Air 98.0 EKG: EKG: [] Radiology/Procedures: Radiology/Procedures: [] Course & Med Decision Making: Course & Med Decision Making Pertinent Labs and Imaging studies reviewed. (See chart for details) [] Dragon Disclaimer: Dragon Disclaimer: This electronic medical record was generated, in whole or in part, using a voice recognition dictation system. Departure Departure Impression: Primary Impression: Left ankle sprain Qualified Codes: S93.402A - Sprain of unspecified ligament of left ankle, initial encounter Disposition: 01 DC HOME SELF CARE/HOMELESS Condition: STABLE Referrals: NO PCP (PCP) DUNCAN MITCHELL MD Patient Instructions: Ankle Sprain, [id number], Crutch Use, [id number] Additional Instructions: ICE areas of discomfort 20 min on then leave off next 20 mins. Repeat several times daily for next few days as needed. May use over the counter Tylenol and/or Ibuprofen for pain or discomfort. Scripts Hydrocodone/Apap 5-325 (NORCO 5-325 TABLET) 1 Each Tablet 0.5-1 TAB PO PRN Q6HRS PRN for PAIN, #14 TAB 0 Refills Prov: MASTER CARMICHAEL DO 05/26/20 MASTER CARMICHAEL DO May 26, 2020 19:51
[2020-05-26] MEDS ORDERED: HYDR-3164 PO (19:57)
== END 2020-05-26 20:07 | disposition home or self-care (01) ==
LOC: ER 18:09
DX: S93.492A Sprain of other ligament of left ankle, initial encounter (principal); G43.909 Migraine, unspecified, not intractable, without status migrainosus; F17.200 Nicotine dependence, unspecified, uncomplicated; Z98.890 Other specified postprocedural states; W18.39XA Other fall on same level, initial encounter; Y93.89 Activity, other specified; Y92.89 Other specified places as the place of occurrence of the external cause; Y99.8 Other external cause status
CPT/HCPCS: 73610; 99283